=== PATIENT | female | born 1985 | race Caucasian/White ===

== ENCOUNTER 2016-09-02 17:25 | Emergency (ER) | payer BC, OTHER ==
[2016-09-02 17:32] VITALS: BP 123/80
--- NOTE | 2016-09-02 17:51 | ERNOTE ---
Upper Extremity HPI - Narrative Date of Service: 09/02/16 - General Time Seen by Provider: 09/02/16 17:33 Source: patient Exam Limitations: no limitations - Immun/Allergies/Home Medications Immunizations: IMMUNIZATION HX Immunizations Up to Date Yes History of Influenza Vaccine Yes Hx Pneumococcal Vaccination No Allergies/Adverse Reactions: Allergies Allergy/AdvReac Type Severity Reaction Status Date / Time No Known Allergies Allergy Verified 09/02/16 17:31 Home Medications: HOME MEDICATIONS lamoTRIgine [Lamictal] 100 mg PO QAM 03/18/15 [Last Taken 05/06/15] ALPRAZolam [Xanax] 0.5 mg PO TID PRN 08/27/15 [Last Taken Unknown] ARIPiprazole [Abilify] 10 mg PO DAILY 09/02/16 [Last Taken Unknown] - History of Present Illness Narrative: Pt. comes in with c/o tremors of her hands that she has had intermittently for 14 years but has worsened over the past two weeks and is now constant. Pt. denies any SOB, CP, NVD, fever, recent illness, alleviating factors but states that it worsens with concentration on a task. Pt. denies ny prehospital tratment but tried to get an appointment with her PCP and found her to be OOO for the rest of the month. Review of Systems - Review of Systems Constitutional: Present: no symptoms reported. Absent: recent illness, fever, chills, weakness, fatigue, malaise EYE: Present: no symptoms reported ENT: Present: no symptoms reported Respiratory: Present: no symptoms reported. Absent: shortness of breath, cough , wheezing Cardiology: Present: no symptoms reported. Absent: chest pain, palpitations, edema Gastrointestinal/Abdominal: Present: no symptoms reported. Absent: nausea, vomiting, diarrhea Genitourinary: Present: no symptoms reported Musculoskeletal: Present: no symptoms reported. Absent: back pain, joint pain Skin: Present: no symptoms reported Neurological: Present: tremors, pre-existing deficit. Absent: dizziness/light- headedness, numbness, tingling All Other Systems: All systems neg except as marked - Patient's Past Medical History Patient History - Medical: Anxiety, Bipolar, Depression Patient History - Cardiac/Respiratory: No pertinent hx Patient History - Cancer: No Hx of Cancer Patient History - Surgical Procedures: , Other Patient History - Other: None LMP (Calendar): 12/03/15 - Family History Mother Family History - Medical: No pertinent hx Family History - Cardiac/Respiratory: Hypertension Father Family History - Cardiac/Respiratory: Hypertension - Social History Living Situations: home Abuse History: No History of abuse Psych History: Hx of Anxiety, Hx of Depression Smoking Status: Never smoker Have you smoked in the past 12 months: No Alcohol Use: none Drug Use: none - Immunizations Immunizations Up to Date: Yes Hx Pneumococcal Vaccination: No History of Influenza Vaccine: Yes Physical Exam - Physical Exam General Appearance: Present: wd/wn, alert, no apparent distress Eye Exam: Normal inspection: bilateral, PERRL: bilateral, EOMI: bilateral Ears, Nose, Throat: Present: normal ENT inspection, normal pharynx Neck: Present: normal inspection, nontender. Absent: lymphadenopathy (R), lymphadenopathy (L) Respiratory: Present: no respiratory distress, normal breath sounds, no accessory muscle use, chest nontender, lungs clear Cardiovascular/Chest: Present: regular rate, rhythm, no murmur, normal peripheral pulses Gastrointestinal/Abdominal: Present: normal bowel sounds, nontender, nondistended, soft, no organomegaly Back Exam: Present: normal inspection Extremity Exam: Present: normal inspection Neurological Exam: Present: other - tremors B hands moderate not fine ED Progress - Date and Time Seen: Date and Time: 09/02/16 18:11 Pt. without acute dangerous causes of tremors so feel that we could refer pt. to neurology for outpatient treatment. - Results and Orders Patient's Lab Results:: I have reviewed the patient's lab results. - Vital Signs Patient's Vital Signs:: I have reviewed the patient's vital signs. Vital Signs: Vital Signs 09/02/16 17:29 Temperature 36.4 C L Pulse Rate 87 Respiratory 14 Rate Blood Pressure 123/80 O2 Sat by Pulse 100 Oximetry - Progress/Reassessment Chief Complaint: Hand Injury/Pain Departure Clinical Impression: Essential tremor - Departure Disposition: Home self-care Condition: Good Instructions: Essential Tremor Additional Instructions: Please call neurology office for appointment in the morning. Referrals: Bela Pinto MD [Staff Physician] -
[2016-09-02 17:55] LABS: Hemoglobin 13.3 gm/dL (12.5-16.0); Mean Cell Volume 80.9 fl (78-100); Mean Corpuscular Hemoglobin 27.6 pg (27-31); Mean Corpuscular Hgb Conc 34.1 g/dl (32-36); Mean Platelet Volume 9.9 fl (6.0-9.5); Neutrophil # 4.9 K/mm3 (1.3-6.0); Platelet Count 410 K/mm3 (150-450); Red Blood Count 4.82 M/mm3 (4.2-5.4); Red Cell Distribution Width 13.2 % (11.5-14.0); White Blood Count 9.3 K/mm3 (4.0-10.5)
[2016-09-02 17:57] LABS: Urine Bilirubin Negative (NEGATIVE); Urine Blood Negative /ul (NEGATIVE); Urine Ketone Negative (NEGATIVE); Urine Nitrite Negative (NEGATIVE); Urine Protein Negative (NEGATIVE); Urine Specific Gravity 1.015 SP.GR. (1.005-1.010); Urine Urobilinogen Normal (NORMAL); Urine pH 7.5 pH (5.0-7.0)
[2016-09-02 18:04] LABS: Urine Appearance Clear; Urine Bacteria TRACE; Urine Color Yellow; Urine RBC None Seen /hpf (0-5); Urine WBC None Seen /hpf (0-5)
[2016-09-02 18:10] LABS: Albumin * 3.5 gm/dl (3.4-5.0); Anion Gap 13.2 mmol/L (6.8-13.8); BUN/Creatinine Ratio 16.2 (9.0-21.6); Bilirubin, Total 0.2 mg/dL (0.0-1.1); Ca. Corrected For Albumin 8.9 mg/dL (8.4-10.2); Calcium * 8.8 mg/dL (7.9-10.9); Carbon Dioxide 26.9 mmol/L (24-32.6); Potassium 4.1 mmol/L (3.4-4.6); Total Protein 7.5 gm/dL (6.2-8.2)
== END 2016-09-02 18:22 | disposition home or self-care (01) ==
LOC: ER 17:25
DX: G25.0 Essential tremor (principal); F41.8 Other specified anxiety disorders; F31.9 Bipolar disorder, unspecified